=== PATIENT | female | born 1935 | race Caucasian/White ===

== ENCOUNTER 2018-07-04 11:26 | Inpatient (IN) | payer MEDICARE ==
[2018-07-04] MEDS ORDERED: ACETAMINOPHEN TAB 325 MG TAB PO PRN (14:19)
[2018-07-04] MEDS ORDERED: NALOXONE 0.4 MG/ML 1 ML VIAL IV PRN (14:19)
[2018-07-04] MEDS ORDERED: HYDROcodone/APAP 5-325MG 1 EACH TAB PO PRN (14:23)
[2018-07-04] MEDS ORDERED: ALPRAZolam 0.25 MG TAB PO PRN (14:23)
[2018-07-04] MEDS: SODIUM CHLORIDE 0.9% 1,000 ML IV SCH (15:00)
[2018-07-04 15:18] LABS: Basophils % (A) 0 %; Eosinophils % (A) 0 %; HCT 37.1 % (34.0-46.0); HGB 11.9 gm/dL (11.4-16.0); Lymphocytes % (A) 8 %; MCH 29.8 pg (25.0-35.0); MCHC 32.1 g/dL (31.0-37.0); MCV 92.6 fL (80.0-100.0); Mean Platelet Volume 6.4; Monocytes # (A) 0.7 k/uL (0-1.0); Monocytes % (A) 6 %; Neutrophils % (A) 84 %; Platelet Count 268 k/uL (150-450); RBC 4.01 m/uL (3.80-5.40); RDW 13.5 % (11.5-15.5); WBC 11.9 k/uL (3.8-10.6)
[2018-07-04 15:26] LABS: ALT 31 U/L (9-52); AST 29 U/L (14-36); Albumin 3.9 g/dL (3.5-5.0); Alkaline Phosphatase 94 U/L (38-126); Anion Gap 9 mmol/L; Blood Urea Nitrogen 11 mg/dL (7-17); Calcium 8.9 mg/dL (8.4-10.2); Carbon Dioxide 23 mmol/L (22-30); Chloride 99 mmol/L (98-107); Glucose 123 mg/dL (74-99); Magnesium 1.8 mg/dL (1.6-2.3); Potassium 4.3 mmol/L (3.5-5.1); Sodium 131 mmol/L (137-145); Total Bilirubin 0.7 mg/dL (0.2-1.3); Total Protein 6.9 g/dL (6.3-8.2)
--- NOTE | 2018-07-04 15:52 | XR ---
EXAMINATION TYPE: XR chest 1V DATE OF EXAM: 07/04/2018 COMPARISON: None INDICATION: Presurgical clearance TECHNIQUE: Single frontal view of the chest is obtained. FINDINGS: The heart size is enlarged. The pulmonary vasculature is normal. The lungs are clear. IMPRESSION: 1. Cardiomegaly.
[2018-07-04] MEDS ORDERED: MAGNESIUM HYDROXIDE 2,400 MG/10 ML CUP PO PRN (15:57)
[2018-07-04] MEDS ORDERED: BISACODYL 10 MG SUPP RECTAL PRN (15:57)
[2018-07-04] MEDS ORDERED: HYDROmorphone 1 MG/ML 1 ML SYRINGE IVP PRN (15:58)
[2018-07-04] MEDS ORDERED: hydrALAZINE HCL 20 MG/ML 1 ML VIAL IVP PRN (15:58)
[2018-07-04 17:11] VITALS: BMI 27.6
[2018-07-04 18:28] LABS: Amorphous Sediment,Urine Moderate /hpf; Appearance,Urine Turbid (Clear); Bilirubin,Urine Negative (Negative); Blood,Urine Negative (Negative); Color,Urine Yellow; Glucose,Urine (UA) Negative (Negative); Ketones,Urine 1+ (Negative); Leukocyte Esterase,Urine Moderate (Negative); Mucus,Urine Rare /hpf; Nitrite,Urine Negative (Negative); Protein,Urine Trace (Negative); RBC,Urine 5 /hpf (0-5); Specific Gravity,Urine 1.014 (1.001-1.035); Squamous Epithelial Cell,Urine 1 /hpf (0-4); Urobilinogen,Urine <2.0 mg/dL (<2.0); WBC,Urine 17 /hpf (0-5)
--- NOTE | 2018-07-04 19:30 | P.CNOR ---
History of Present Illness - [facility] Consult date: 07/04/18 Consult reason: fracture (Left hip fracture) History of present illness: This is an 82-year-old female who resides at in [facility] in [place]. She had an unwitnessed fall today, sustaining injury to her left hip. On exam and x-ray in the emergency department in [place] she was noted to have an intertrochanteric fracture of the left hip. She was transferred to [facility] for orthopedic evaluation and intervention. She has history of dementia. Her is present at bedside. He is her historian. They both have a power of patent attorney. Past Medical History Past Medical History: Memory Impairment, Osteoarthritis (OA) History of Any Multi-Drug Resistant Organisms: None Reported Past Surgical History: No Surgical Hx Reported Past Anesthesia/Blood Transfusion Reactions: No Reported Reaction Past Psychological History: No Psychological Hx Reported Smoking Status: Never smoker Past Alcohol Use History: None Reported Past Drug Use History: None Reported Medications and Allergies Home Medications Medication Instructions Recorded Confirmed Type ALPRAZolam [Xanax] 0.5 mg PO TID@,07/04/18 07/04/18 History Acetaminophen Tab [Tylenol Tab] 1,000 mg PO BID@07/04/18 07/04/18 History Acetaminophen Tab [Tylenol Tab] 500 mg PO Q8H PRN 07/04/18 07/04/18 History Bisacodyl [Dulcolax] 10 mg RECTAL DAILY PRN 07/04/18 07/04/18 History Escitalopram [Lexapro] 10 mg PO HS@209907/04/18 07/04/18 History Magnesium Hydroxide [Milk of 2,400 mg PO DAILY PRN 07/04/18 07/04/18 History Magnesia] risperiDONE [RisperDAL] 0.25 mg PO HS@209907/04/18 07/04/18 History Allergies Allergy/AdvReac Type Severity Reaction Status Date / Time shellfish derived [Shellfish] AdvReac Swelling Verified 07/04/18 17:56 Physical Examination This is an 82-year-old female in no acute distress. She is alert but has confusion. She is essentially nonverbal. Exam of the head neck reveal no obvious deformity. There is no pain with palpation about the cervical spine or paraspinal musculature. Exam of the upper extremities reveals no obvious deformities. Exam of the lower extremities reveals shortening and external rotation to the left leg. She has full foot and ankle motion without difficulty or pain. Pedal pulse +2/4. Neurovascular status to the lower extremity is intact. Results X-rays of the pelvis and left hip from [place] reveal a displaced and shortened three-part intertrochanteric fracture of the left hip. There is possibly an old fracture of the inferior pubic rami on the left. - Labs Labs: Abnormal Lab Results - Last 24 Hours (Table) 07/04/18 07/04/18 07/04/18 Range/Units 14:45 14:45 18:11 WBC 11.9 H (3.8-10.6) k/uL Neutrophils # 10.0 H (1.3-7.7) k/uL Sodium 131 L (137-145) mmol/L Creatinine 0.51 L (0.52-1.04) mg/dL Glucose 123 H (74-99) mg/dL Urine Appearance Turbid H (Clear) Urine Protein Trace H (Negative) Urine Ketones 1+ H (Negative) Ur Leukocyte Esterase Moderate H (Negative) Urine WBC 17 H (0-5) /hpf Amorphous Sediment Moderate H (None) /hpf Urine Mucus Rare H (None) /hpf H & H 07/04/18 Range/Units 14:45 Hgb 11.9 (11.4-16.0) gm/dL Hct 37.1 (34.0-46.0) % Result Diagrams: 07/04/18 14:45 07/04/18 14:45 Assessment and Plan (1) Intertrochanteric fracture of left hip Current Visit: Yes Status: Acute Code(s): S72.142A - DISPLACED INTERTROCHANTERIC FRACTURE OF LEFT FEMUR, INIT SNOMED Code(s): 430536844 (2) Parkinson's disease dementia Current Visit: Yes Status: Acute Code(s): G20 - PARKINSON'S DISEASE; F02.80 - DEMENTIA IN OTH DISEASES CLASSD ELSWHR W/O BEHAVRL DISTURB SNOMED Code(s): 761632309 Plan: The clinical and x-ray findings are discussed with the patient and her . It is recommended that she undergo closed reduction with insertion of intertrochanteric nail of left hip. The procedures discussed in detail including the possible risks and outcomes of surgery. After discussion and consideration the patient's consents to surgery. We will contact the patient's power of patent attorney for consent. She is tentatively scheduled for surgery tomorrow if cleared medically.
[2018-07-04] MEDS: ESCITALOPRAM 10 MG TAB PO SCH (21:07)
[2018-07-04] MEDS: risperiDONE 0.25 MG TAB PO SCH (21:07)
--- NOTE | 2018-07-04 21:50 | HP ---
HISTORY AND PHYSICAL CHIEF COMPLAINT: Hip fracture. HISTORY OF PRESENT ILLNESS: This 82-year-old woman with a past medical history of significant dementia, DJD, Parkinson's, depression being followed by Dr. Geo Saleem living in [facility]. Patient was found on the floor and also noted left hip fracture and physician in [facility] discussed the case at length with me and he also discussed case with orthopedic surgeon and the patient directly transferred to [facility] for further evaluation and treatment. Currently patient unable to give a coherent history. Most of the history taken my discussion with staff and discussion with the at bedside and review of chart. PAST MEDICAL HISTORY: History of dementia, history of DJD, history of Parkinson's, history of depression. MEDICATIONS: 1. Dulcolax p.r.n. 2. Lexapro 10 mg daily. 3. Milk of magnesia. 4. Risperdal 0.25 mg q.h.s. 5. Tylenol p.r.n. 6. Xanax 0.5 t.i.d. ALLERGIES: None. Family history, social history and review of systems could not be taken because the patient's baseline mental status. PHYSICAL EXAM: Patient is conscious, confused. Pulse 80, blood pressure 140/73, respiration 18, temperature 98.6, pulse ox 94% on room air. HEENT: Conjunctivae normal. Oral mucosa moist. Neck is no jugular venous distention. No carotid bruit. No lymph node enlargement. CARDIOVASCULAR: S1, S2. RESPIRATORY: Breath sounds diminished in the bases. no rhonchi, no crackles. ABDOMEN: Soft, nontender. No mass palpable. LEGS: Status post left hip fracture. NERVOUS SYSTEM: Higher functions as mentioned earlier. Moves all limbs with mild diffuse weakness. LYMPHATICS: No lymphadenopathy in the neck, axillae, groin. SKIN: No ulcer, rash or bleeding. JOINTS: As mentioned earlier. LABS: WBC 11, hemoglobin 11, sodium 131. ASSESSMENT: 1. Fall and left hip fracture. 2. Increased WBC possibly reactive. 3. Hyponatremia. 4. History of dementia. 5. History of degenerative joint disease. 6. History of Parkinson's. 7. History of depression. RECOMMENDATIONS AND DISCUSSION: In this 82-year-old woman who presented with multiple medical issues at this time I recommend to continue current management and I would recommend baseline EKG. Chest x- ray within normal. Patient cleared for surgery. Otherwise, I would recommend to resume the home medications. Symptomatic treatment. Incentive spirometry. Prognosis guarded, but however the patient is medically stable. Discussed with . ANJALI / MARLEN: [id number] /
[2018-07-04] MEDS: HEPARIN SODIUM,PORCINE 5,000 UNIT/ML 1 ML VIAL SQ SCH (22:43)
[2018-07-05] MEDS: PANTOPRAZOLE 40 MG TABLET PO SCH (08:37)
[2018-07-05] MEDS: HEPARIN SODIUM,PORCINE 5,000 UNIT/ML 1 ML VIAL SQ SCH ×2 (08:37→21:11)
[2018-07-05] MEDS ORDERED: KETAMINE 10 MG/ML 20 ML VIAL ONE (09:21)
[2018-07-05] MEDS ORDERED: PHENYLEPHRINE-0.9% NACL SYG 1 MG/10 ML SYRINGE ONE (09:21)
[2018-07-05] MEDS ORDERED: ePHEDrine SULFATE/0.9% NACL/PF 50 MG/5 ML SYRINGE IV ONE (09:21)
[2018-07-05] MEDS ORDERED: MIDAZOLAM 2 MG/2 ML VIAL ONE (09:21)
[2018-07-05] MEDS ORDERED: SODIUM CHLORIDE 0.9% 100 ML with ceFAZolin 2,000 MG IV ONE ×2 (09:21)
[2018-07-05] MEDS ORDERED: IV FLUID CONTINUATION 1,000 ML IV ONE (09:21)
[2018-07-05] MEDS ORDERED: LACTATED RINGERS 1,000 ML IV ONE (09:45)
[2018-07-05] MEDS ORDERED: ceFAZolin 1,000 MG in SODIUM CHLORIDE 0.9% 1,000 ML IRRIGATION ONE (10:11)
--- NOTE | 2018-07-05 10:44 | P.OP ---
Date of Procedure: 07/05/18 Procedure(s) Performed: PREOPERATIVE DIAGNOSIS: Left hip intertrochanteric fracture. POSTOPERATIVE DIAGNOSIS: Left hip intertrochanteric fracture. OPERATION: Left hip intertrochanteric fracture closed reduction and intramedullary nailing using Synthes IT nail. GREASE MAN: Eliza Sanabria (Assistance with: Patient positioning, retraction, exposure, hemostasis, fixation, irrigation, closure, dressing) ANESTHESIA: Spinal ESTIMATED BLOOD LOSS: 50 mL. COMPLICATIONS: None OPERATIVE FINDINGS: See dictation INDICATIONS: Mrs. Dejesus is an 82-year-old female with a history of left intertrochanteric fracture. The patient also has a history of Parkinson's and dementia. The patient presents to the operating room today for closed reduction and intramedullary nailing. I discussed the risks of surgery in detail as being inclusive of but not limited to: Bleeding, infection, scarring, discomfort, blood vessel and/or nerve damage, need for further surgery, malunion , nonunion, gait disturbance including persistent or permanent limp, limb length inequality, arthritis, hardware failure, blood clot, pulmonary embolism, , and other risks. The consent form has been signed by her legal guardian via phone consent. PROCEDURE: After appropriate consent was obtained, the patient was taken to the operating room and placed in supine position. Spinal anesthetic was administered and after confirmation of adequate anesthesia, the patient was carefully placed in the supine position on the operating room table in the fracture table. The patient was placed up against a well-padded peroneal post. Care was taken to make sure about that all pressure points were adequately padded. The affected leg was placed in boot traction and the unaffected leg was placed in a well leg camacho. Using gentle longitudinal distraction as well as adduction and internal rotation, the fracture was reduced as assessed by AP and lateral C-arm imaging. Once a satisfactory reduction had been obtained, the thigh was prepped and draped in the usual aseptic fashion using ChloraPrep. Ioban drape was used for the case and the patient received intravenous antibiotics prior to incision. Timeout was called, confirming patient identity, side, procedure, and administration of antibiotics. The incision was then created with a #10 blade just proximal to the greater trochanter laterally. It was carried down through skin into the subcutaneous tissues and through fascia. Hemostasis was obtained using electrocautery. The tip of the greater trochanter was palpated and a guide pin was placed at the tip and directed into the femoral shaft as assessed with C-arm imaging. Once optimal pin position had been obtained, a 17 mm reamer was used over the guide pin to create a path for the IT nail. IT nail selected was assembled to the insertion jig on the back table and bushings were checked for accuracy. The shaft was reamed to 12.5 mm in preparation for an 11 mm nail. The nail was then inserted using gentle mallet taps until it was fully deployed. The amount of rotation of the implant was assessed based on the amount of anteversion of the femoral neck. This was rotated to match the patient's femoral neck anteversion and the helical blade guide was placed through the insertion jig and through an incision on the lateral side of the thigh more distal than the first. Once this guide was placed against the lateral cortex of the femur, a guide pin was drilled into the central region of the femoral head and neck as based on AP and lateral C-arm imaging. Once optimal pin position had been obtained, the guidewire was measured and appropriately sized helical blade was selected. The path for the helical blade was prepared using a tapered reamer. The helical blade was then inserted using gentle mallet taps along the guidewire until it was fully deployed. There was no displacement of the fracture during this step. The anti-rotation screw was locked down and the insertion apparatus for the helical blade was removed. The guide pin was then removed. Traction was then removed from the leg and the distal interlock was placed through the jig using standard technique. Finally, the insertion jig for the nail was removed and final C-arm images were taken and saved in both AP and lateral planes. The final x-rays showed satisfactory positioning of the implant and good reduction of the fracture. The top of the nail was plugged with a small quantity of bone wax and the incisions were then thoroughly irrigated with normal saline. Final hemostasis was obtained using electrocautery and closure of the fascia was performed using 0-Vicryl suture. 2-0 Vicryl suture was used in the subcutaneous tissues and rui were used for the skin. Sterile dressing was then applied and the patient was carefully removed from the fracture table frame and placed onto the stretcher. The patient tolerated the procedure well. There were no complications and 50 of blood loss. The patient was then subsequently transferred to recovery room in stable condition. Sponge and needle counts were correct.
--- NOTE | 2018-07-05 10:47 | FL ---
FLUOROSCOPY 1.02 minutes of fluoroscopy time were utilized during dynamic hip pinning of the left hip. 2 images d ocument the procedure.
[2018-07-05] MEDS ORDERED: HYDROmorphone 1 MG/ML 1 ML SYRINGE IVP PRN ×2 (10:55)
[2018-07-05] MEDS ORDERED: NALOXONE 0.4 MG/ML 1 ML VIAL IV PRN (10:55)
[2018-07-05] MEDS: LACTATED RINGERS 1,000 ML IV SCH ×2 (12:23→21:11)
[2018-07-05] MEDS: HYDROmorphone 1 MG/ML 1 ML SYRINGE IVP PRN ×3 (13:12→23:30)
[2018-07-05] MEDS: cefTRIAXone IN SWFI 1,000 MG/10 ML SYRINGE IVP SCH (13:14)
--- NOTE | 2018-07-05 16:40 | PN ---
PROGRESS NOTE DATE OF SERVICE: 07/05/2018. HISTORY: This 82-year-old woman was admitted with fall and left hip fracture. She underwent surgery by Dr. Newton today. The patient underwent left hip intertrochanteric fracture, closed reduction and intramedullary nailing using Synthes IT nail. The patient is slightly drowsy after surgery. EXAM: Pulse 76, blood pressure 109/56, respirations 16, temperature 98.9, pulse ox 100 percent on room air. HEENT: Conjunctivae normal. Oral mucosa moist. NECK: No jugular venous distention. No lymph node enlargement. LUNGS: No rhonchi no crackles. ABDOMEN: Soft. EXTREMITIES: Leg status post surgery. No edema, no swelling. LABS: WBC 11.9, sodium 131. UA noted. ASSESSMENT: 1. Fall and left hip fracture. 2. Increased WBC, possibly reactive. 3. Urinary tract infection, present on admission. 4. Hyponatremia. 5. History of dementia. 6. History of degenerative joint disease. 7. History of Parkinson. 8. History of depression. 9. Urinary tract infection, not related to Bass catheter. RECOMMENDATIONS: Continue current management and symptomatic treatment. DVT prophylaxis. Continue the rest of the medications. Pain management. Further recommendations to follow. MMODL / IJN: [id number] /
[2018-07-05] MEDS: SODIUM CHLORIDE 0.9% 1,000 ML IV SCH (16:46)
[2018-07-05] MEDS: ceFAZolin IN SWFI 2 GM/20 ML SYRINGE IVP SCH ×2 (16:47→23:24)
[2018-07-05] MEDS ORDERED: WARFARIN 2.5 MG TAB PO ONE (18:00)
[2018-07-05] MEDS: SENNOSIDES-DOCUSATE SODIUM 1 EACH TAB PO SCH (21:11)
[2018-07-05] MEDS: ESCITALOPRAM 10 MG TAB PO SCH (21:11)
[2018-07-05] MEDS: risperiDONE 0.25 MG TAB PO SCH (21:11)
[2018-07-06] MEDS: HYDROmorphone 1 MG/ML 1 ML SYRINGE IVP PRN ×2 (02:33→04:57)
[2018-07-06 07:45] LABS: INR 1.1 (<1.2); Prothrombin Time 10.3 sec (9.0-12.0)
[2018-07-06 07:49] LABS: Basophils % (A) 0 %; Eosinophils # (A) 0.1 k/uL (0-0.7); Eosinophils % (A) 1 %; HCT 30.2 % (34.0-46.0); HGB 9.9 gm/dL (11.4-16.0); Lymphocytes # (A) 1.2 k/uL (1.0-4.8); Lymphocytes % (A) 13 %; MCHC 32.7 g/dL (31.0-37.0); MCV 91.9 fL (80.0-100.0); Mean Platelet Volume 6.6; Monocytes # (A) 0.9 k/uL (0-1.0); Monocytes % (A) 9 %; Neutrophils # (A) 7.3 k/uL (1.3-7.7); Neutrophils % (A) 75 %; Platelet Count 240 k/uL (150-450); RBC 3.28 m/uL (3.80-5.40); RDW 13.9 % (11.5-15.5); WBC 9.7 k/uL (3.8-10.6)
[2018-07-06] MEDS: LACTATED RINGERS 1,000 ML IV SCH ×2 (07:54→08:08)
[2018-07-06] MEDS: cefTRIAXone IN SWFI 1,000 MG/10 ML SYRINGE IVP SCH (08:07)
[2018-07-06] MEDS: SODIUM CHLORIDE 0.9% 1,000 ML IV SCH (08:08)
[2018-07-06] MEDS: PANTOPRAZOLE 40 MG TABLET PO SCH (08:10)
[2018-07-06] MEDS: HEPARIN SODIUM,PORCINE 5,000 UNIT/ML 1 ML VIAL SQ SCH ×2 (08:11→20:18)
--- NOTE | 2018-07-06 08:13 | P.PN ---
Subjective Progress Note Date: 07/06/18 Principal diagnosis: Intertrochanteric fracture left hip. Status post IT nail insertion left hip. This is an 82-year-old female who is status post close reduction with insertion of intertrochanteric nail left hip. The patient is stable from an orthopedic standpoint. No new complaints or concerns. Vital signs are stable. Objective - Vital Signs Vital signs: Vital Signs Temp 99.1 F 07/06/18 07:48 Pulse 90 07/06/18 07:48 Resp 17 07/06/18 07:49 BP 163/78 07/06/18 07:48 Pulse Ox 92 L 07/06/18 07:48 Intake & Output 07/05/18 07/06/18 07/06/18 18:59 06:59 18:59 Intake Total 1001 1250 Output Total 390 Balance 611 1250 Intake: IV 901 Intake, IV Titration 100 1250 Amount Lactated Ringers 1,000 ml 1250 @ 100 mls/hr IV .Q10H [facility] Rx#:[id number] Sodium Chloride 0.9% 1, 100 000 ml @ 20 mls/hr IV . Q24H [facility] Rx#:[id number] Output: Urine 340 Uretheral (Bass) 150 Estimated Blood Loss 50 Other: Voiding Method Indwelling Catheter Incontinent Incontinent # Voids 3 - Exam This is a pleasantly confused 82-year-old female in no acute distress. She is alert but confused. Exam of the left hip reveals that her dressing is clean, dry and intact. She has full foot ankle motion without difficulty or pain. Neurovascular status to the lower extremity is intact. - Labs CBC & Chem 7: 07/06/18 07:03 07/04/18 14:45 Labs: Abnormal Lab Results - Last 24 Hours (Table) 07/06/18 Range/Units 07:03 RBC 3.28 L (3.80-5.40) m/uL Hgb 9.9 L D (11.4-16.0) gm/dL Hct 30.2 L (34.0-46.0) % Assessment and Plan (1) Intertrochanteric fracture of left hip Current Visit: Yes Status: Acute Code(s): S72.142A - DISPLACED INTERTROCHANTERIC FRACTURE OF LEFT FEMUR, INIT SNOMED Code(s): 188513844 (2) Parkinson's disease dementia Current Visit: Yes Status: Acute Code(s): G20 - PARKINSON'S DISEASE; F02.80 - DEMENTIA IN OTH DISEASES CLASSD ELSWHR W/O BEHAVRL DISTURB SNOMED Code(s): 858390018 Plan: The clinical findings are discussed with the nursing staff. We will continue current care. Physical therapy may get her up in a chair today. We are planning discharge back to [facility] tomorrow or Friday.
--- NOTE | 2018-07-06 12:38 | PN ---
PROGRESS NOTE DATE OF SERVICE: 07/06/2018 This is an 82-year-old woman who was admitted with fall and left hip fracture. Patient underwent surgery by Dr. Newton. The patient underwent a left hip closed reduction, intramedullary nailing using Synthes 80 nail. Patient is confused, which is her baseline. PHYSICAL EXAM: Pulse is 90, blood pressure 160/72, respirations 17, temperature 99.1, pulse ox 92% on room air. HEENT: Conjunctivae normal, oral mucosa moist. Neck is no jugular venous distention. No lymph node enlargement, no carotid bruit. CARDIOVASCULAR SYSTEM: S1, S2, muffled. RESPIRATORY: Breath sounds diminished at the bases, no rhonchi, no crackles. ABDOMEN: Soft, nontender. LEGS: Status post surgery. NERVOUS SYSTEM: No focal deficits. LABS: WBC 9.7, hemoglobin is 9.9. ASSESSMENT: 1. Fall and left hip fracture, status post closed reduction and intramedullary nailing using Synthes 80 nail. 2. Increased WBC, possibly reactive. 3. Urinary tract infection, present on admission. 4. Hyponatremia. 5. History of dementia. 6. History of degenerative joint disease. 7. History of Parkinson's. 8. History of depression. 9. Urinary tract infection, now treated with Bass catheter, present on admission. 10.NO CODE, NO CARDIOPULMONARY RESUSCITATION, NO VENTILATOR. RECOMMENDATION: In this 82-year-old woman who presented with multiple complex medical issues, will monitor the patient closely, continue with the medical management and symptomatic treatment. Otherwise, at this time I would recommend to continue the current med, DVT prophylaxis, incentive spirometry. Further recommendations to follow. MMODL / IJN: [id number] /
[2018-07-06] MEDS ORDERED: WARFARIN 2.5 MG TAB PO ONE (18:00)
[2018-07-06] MEDS: ESCITALOPRAM 10 MG TAB PO SCH (20:18)
[2018-07-06] MEDS: risperiDONE 0.25 MG TAB PO SCH (20:18)
[2018-07-06] MEDS: SENNOSIDES-DOCUSATE SODIUM 1 EACH TAB PO SCH (20:18)
[2018-07-07] MEDS: LACTATED RINGERS 1,000 ML IV SCH ×2 (05:30→09:00)
[2018-07-07 08:41] LABS: Basophils % (A) 0 %; Eosinophils # (A) 0.1 k/uL (0-0.7); Eosinophils % (A) 1 %; HCT 26.9 % (34.0-46.0); Lymphocytes # (A) 1.3 k/uL (1.0-4.8); Lymphocytes % (A) 17 %; MCH 30.8 pg (25.0-35.0); MCHC 33.4 g/dL (31.0-37.0); MCV 92.2 fL (80.0-100.0); Mean Platelet Volume 6.4; Monocytes # (A) 0.6 k/uL (0-1.0); Monocytes % (A) 8 %; Neutrophils # (A) 5.5 k/uL (1.3-7.7); Neutrophils % (A) 71 %; Platelet Count 213 k/uL (150-450); RBC 2.91 m/uL (3.80-5.40); WBC 7.7 k/uL (3.8-10.6)
[2018-07-07] MEDS ORDERED: traMADol 50 MG TAB PO PRN ×2 (08:42)
--- NOTE | 2018-07-07 08:48 | P.PN ---
Subjective Progress Note Date: 07/07/18 Principal diagnosis: Status post left hip IT nail This is an 82 year-old female post left hip IT nail. This is post-op day 2. The patient was evaluated at the bedside today. The patient denies nausea, vomiting, abdominal pain, shortness of breath, and chest pain this morning. She states her pain is controlled at this time. The patient has been up with physical therapy to transfer into the recliner chair. Objective - Vital Signs Vital signs: Vital Signs Temp 99.7 F H 07/07/18 07:12 Pulse 86 07/07/18 07:12 Resp 17 07/07/18 07:13 BP 154/76 07/07/18 07:12 Pulse Ox 96 07/07/18 07:12 Intake & Output 07/06/18 07/07/18 07/07/18 18:59 06:59 18:59 Intake Total 100 160 Balance 100 160 Intake: Intake, IV Titration 160 Amount Sodium Chloride 0.9% 1, 160 000 ml @ 20 mls/hr IV . Q24H [facility] Rx#:[id number] Oral 100 0 Other: Voiding Method Incontinent Incontinent # Voids 1 1 - Exam The patient does not appear in acute distress. Alert and orientated x1. Dressing is clean dry and intact. Incision appears fine with no erythema or active drainage. Calf is soft and nontender. Good passive foot and ankle motion without difficulty. Sensation and circulatory status is intact. - Labs CBC & Chem 7: 07/06/18 07:03 07/04/18 14:45 Assessment and Plan (1) Status post hip surgery Current Visit: Yes Status: Acute Code(s): Z98.890 - OTHER SPECIFIED POSTPROCEDURAL STATES SNOMED Code(s): 749109876 (2) Intertrochanteric fracture of left hip Current Visit: Yes Status: Acute Code(s): S72.142A - DISPLACED INTERTROCHANTERIC FRACTURE OF LEFT FEMUR, INIT SNOMED Code(s): 627130907 Plan: 1. Continue pain control 2. Anticoagulation with Coumadin per protocol 3. Continue physical therapy and ambulation 4. Anticipate discharge to [facility] when medically stable, maybe today. She is orthopedically stable for discharge from our standpoint.
[2018-07-07 08:50] LABS: INR 1.1 (<1.2); Prothrombin Time 10.4 sec (9.0-12.0)
[2018-07-07] MEDS: HEPARIN SODIUM,PORCINE 5,000 UNIT/ML 1 ML VIAL SQ SCH ×2 (08:58→20:18)
[2018-07-07] MEDS: PANTOPRAZOLE 40 MG TABLET PO SCH (08:59)
[2018-07-07] MEDS: cefTRIAXone IN SWFI 1,000 MG/10 ML SYRINGE IVP SCH (08:59)
[2018-07-07] MEDS: SODIUM CHLORIDE 0.9% 1,000 ML IV SCH (09:01)
--- NOTE | 2018-07-07 15:18 | PN ---
PROGRESS NOTE DATE OF SERVICE: 07/07/2018 This 82-year-old woman is admitted with fall and hip fracture, had closed reduction, intramedullary nailing. Patient continues to be confused which is the patient's baseline. The pain management is satisfactory, ECF rehab is being planned. No chest pain. No palpitations. No fever. PHYSICAL EXAM: Patient is conscious, confused, pulse 86, blood pressure 154/70, respiration 17, temperature 99.7, pulse ox 98% on room air. HEENT: Conjunctivae normal, oral mucosal moist. Neck is no jugular venous distention. No lymph node enlargement. CARDIOVASCULAR: S1, S2, muffled. RESPIRATORY: Breath sounds diminished at the bases. No rhonchi. No crackles. ABDOMEN: Soft, nontender. LEGS: Status post hip arthroplasty. NERVOUS SYSTEM: No focal deficits. LABS: WBC 7.7, hemoglobin is 9, UA noted. ASSESSMENT: 1. Fall and left hip fracture, status post closed reduction, intramedullary nailing with using Synthes IT nail. 2. Increased WBC, possibly reactive next. 3. Urinary tract infection, present on admission. 4. Hyponatremia. 5. Change in mental status, chronic metabolic encephalopathy. 6. History of dementia. 7. History of degenerative joint disease. 8. History of Parkinson's. 9. History of depression. 10.Urinary tract infection, not related with Bass catheter present on admission. 11.NO CODE, NO CARDIOPULMONARY RESUSCITATION, NO VENTILATOR. RECOMMENDATION: Recommend to continue current management and symptomatic treatment. Continue with antibiotics, PT, OT evaluation. Increase ambulation. Further recommendations to follow. MMODL / IJN: [id number] /
[2018-07-07] MEDS ORDERED: WARFARIN 7.5 MG TAB PO ONE (18:00)
[2018-07-07] MEDS: ESCITALOPRAM 10 MG TAB PO SCH (20:18)
[2018-07-07] MEDS: SENNOSIDES-DOCUSATE SODIUM 1 EACH TAB PO SCH (20:18)
[2018-07-07] MEDS: risperiDONE 0.25 MG TAB PO SCH (20:18)
[2018-07-08] MEDS: LACTATED RINGERS 1,000 ML IV SCH ×3 (04:43→18:22)
[2018-07-08 07:43] LABS: INR 1.2 (<1.2); Prothrombin Time 11.7 sec (9.0-12.0)
[2018-07-08] MEDS: cefTRIAXone IN SWFI 1,000 MG/10 ML SYRINGE IVP SCH (08:47)
[2018-07-08] MEDS: HEPARIN SODIUM,PORCINE 5,000 UNIT/ML 1 ML VIAL SQ SCH (08:47)
[2018-07-08] MEDS: PANTOPRAZOLE 40 MG TABLET PO SCH (08:47)
[2018-07-08] MEDS ORDERED: HYDROmorphone 2 MG TAB PO PRN ×3 (13:32→13:34)
--- NOTE | 2018-07-08 13:35 | P.DS ---
Providers Date of admission: 07/04/18 13:51 Expected date of discharge: 07/08/18 Attending physician: Tatiana Guajardo Consults: 07/04/18 14:22 Consult Physician Routine Consulting Provider: Tyler Zaragoza Consult Reason/Comments: hip fracture Do you want consulting provider notified?: Yes Primary care physician: Tatiana Saleem Hospital Course: Final Diagnoses: 1. Fall, status post Intertrochanteric fracture left hip, status post close reduction and intramedullary nailing 2. Leukocytosis, possibly reactive 3. Acute UTI, present on admission 4. Hyponatremia 5. Dementia Hospital course: This is an 82-year-old female admitted with left hip fracture. Evaluated by orthopedics. Underwent surgical repair, left hip IT nail. Tolerated procedure well. Significant clinical improvement. Cleared by orthopedic surgery for discharge. Patient is being discharged to [facility] [place] subacute rehab in a stable condition with guarded prognosis. EXAM: Alert and oriented 1, no acute distress. CV: S1, S2 muffled,LUNGS: Bilateral bases diminished.ABD: Soft, nontender, positive bowel sounds.LEGS: Status post surgery. NervousSYS: No focal deficits The impression and plan of care has been dictated as directed. : I performed a history and examination of this patient, discussed the same with the dictator. I agree with the dictator's note ,documented as a scribe. Any additional findings or plans will be noted. I'm taken: 35 minutes Patient Condition at Discharge: Stable Plan - Discharge Summary Discharge Rx Participant: No New Discharge Prescriptions: New Sennosides-Docusate Sodium [Senokot-S] 2 tab PO DAILY #30 tablet traMADol HCl [Ultram] 50 - 100 mg PO Q4-6H PRN #84 tab PRN Reason: Pain Warfarin [Coumadin] 2.5 mg PO DAILY #30 tab Acetaminophen Tab [Tylenol] 650 mg PO Q6HR PRN tab PRN Reason: Mild Pain Or Fever > 100.5 Pantoprazole [Protonix] 40 mg PO AC-BRKFST tablet. Cefuroxime Axetil [Ceftin] 500 mg PO BID #10 tab Continue Magnesium Hydroxide [Milk of Magnesia] 2,400 mg PO DAILY PRN PRN Reason: Constipation Bisacodyl [Dulcolax] 10 mg RECTAL DAILY PRN PRN Reason: Constipation risperiDONE [RisperDAL] 0.25 mg PO HS@2100 Escitalopram [Lexapro] 10 mg PO HS@2100 ALPRAZolam [Xanax] 0.5 mg PO TID@ #9 tab Discontinued Acetaminophen Tab [Tylenol Tab] 500 mg PO Q8H PRN PRN Reason: Fever And/ Or Pain Acetaminophen Tab [Tylenol Tab] 1,000 mg PO BID@ Discharge Medication List Bisacodyl [Dulcolax] 10 mg RECTAL DAILY PRN 07/04/18 [History] Escitalopram [Lexapro] 10 mg PO HS@209907/04/18 [History] Magnesium Hydroxide [Milk of Magnesia] 2,400 mg PO DAILY PRN 07/04/18 [History] risperiDONE [RisperDAL] 0.25 mg PO HS@209907/04/18 [History] Sennosides-Docusate Sodium [Senokot-S] 2 tab PO DAILY #30 tablet 07/07/18 [Rx] Warfarin [Coumadin] 2.5 mg PO DAILY #30 tab 07/07/18 [Rx] traMADol HCl [Ultram] 50 - 100 mg PO Q4-6H PRN #84 tab 07/07/18 [Rx] ALPRAZolam [Xanax] 0.5 mg PO TID@ #9 tab 07/08/18 [Rx] Acetaminophen Tab [Tylenol] 650 mg PO Q6HR PRN tab 07/08/18 [Rx] Cefuroxime Axetil [Ceftin] 500 mg PO BID #10 tab 07/08/18 [Rx] Pantoprazole [Protonix] 40 mg PO AC-BRKFST tablet. 07/08/18 [Rx] Follow up Appointment(s)/Referral(s): Geo Saleem MD [REFERRING] - 3 Days Shad Newton MD [STAFF PHYSICIAN] - 08/03/18 10:15 am Ambulatory/Diagnostic Orders: Prothrombin Time INR [LAB.AMB] Location: None Selected Activity/Diet/Wound Care/Special Instructions: [facility] [place] pending orthopedic clearance Toe-touch weightbearing with a walker Coumadin 2.5 mg daily with weekly PT/INR May shower in 3 days if no drainage from incision Keep incision clean and dry Call [facility] [phone] with questions or concerns Diet: Cardiac, Coumadin diet CBC, BMP in 3 days Discharge Disposition: TRANSFER TO SNF/ECF
[2018-07-08 13:47] LABS: Anion Gap 9 mmol/L; Blood Urea Nitrogen 10 mg/dL (7-17); Calcium 8.1 mg/dL (8.4-10.2); Carbon Dioxide 22 mmol/L (22-30); Chloride 99 mmol/L (98-107); Glucose 94 mg/dL (74-99); Potassium 3.6 mmol/L (3.5-5.1); Sodium 130 mmol/L (137-145)
[2018-07-08 14:36] VITALS: BP 149/77; PULSE 85; RESP 14; TEMP 97.9
[2018-07-08] MEDS: SODIUM CHLORIDE 0.9% 1,000 ML IV SCH (16:17)
[2018-07-08] MEDS ORDERED: WARFARIN 7.5 MG TAB PO ONE (18:00)
== END 2018-07-08 19:02 | DRG 481 ==
LOC: 3SUR 13:51
PROVIDERS: ADMIT Hospitalist; ATTEND Hospitalist
PROC: 0QS736Z Reposition Left Upper Femur with Intramedullary Internal Fixation Device, Percutaneous Approach (ICD-10-PCS; principal; 2018-07-05 09:00)
DX: S72.142A Displaced intertrochanteric fracture of left femur, initial encounter for closed fracture (principal); E87.1 Hypo-osmolality and hyponatremia; N39.0 Urinary tract infection, site not specified; F02.80 Dementia in other diseases classified elsewhere, unspecified severity, without behavioral disturbance, psychotic disturbance, mood disturbance, and anxiety; G20 Parkinson's disease; F32.9 Major depressive disorder, single episode, unspecified; M19.90 Unspecified osteoarthritis, unspecified site; D72.829 Elevated white blood cell count, unspecified; Z79.899 Other long term (current) drug therapy; Z91.013 Allergy to seafood; Z66 Do not resuscitate; W19.XXXA Unspecified fall, initial encounter; Y92.9 Unspecified place or not applicable
CPT/HCPCS: 71045; 73502; 80048; 80053; 81001; 83735; 85025; 85610; 93005